=== PATIENT | female | born 1940 | race African-American/Black ===

== ENCOUNTER 2022-08-31 01:56 | Emergency (ER) | payer OTHER ==
[2022-08-31 02:10] VITALS: BMI 25.0
[2022-08-31] MEDS ORDERED: SODIUM CHLORIDE 0.9% 500 ML INFUS.BAG IV ONE (02:47)
[2022-08-31 03:48] LABS: BASO % 0.8 % (0-2.0); EOS % 1.7 % (0-4.5); HEMATOCRIT 43.3 % (32.4-45.2); HEMOGLOBIN 15.2 GM/dL (10.7-15.3); LYMPH % 28.7 % (8-40); MCH 31.6 pg (25.7-33.7); MCHC 35.2 g/dl (32.0-36.0); MEAN CELL VOLUME 89.8 fl (80-96); MEAN PLT VOLUME 7.8 fl (7.5-11.1); NEUT % 59.8 % (42.8-82.8); PLATELET COUNT 234 10^3/uL (134-434); RBC 4.82 M/mm3 (3.60-5.2); RDW 13.6 % (11.6-15.6); WHITE BLOOD COUNT 5.3 K/mm3 (4.0-10.0)
[2022-08-31 03:53] LABS: INR 1.03 (0.83-1.09); PROTHROMBIN TIME (PATIENT) 11.9 SEC (9.7-13.0)
[2022-08-31 03:56] LABS: ACTIVATED PTT 29.4 SECONDS (25.2-36.5)
[2022-08-31 04:08] LABS: CALCIUM 9.7 mg/dL (8.5-10.1)
[2022-08-31 04:09] LABS: ALBUMIN 3.9 g/dl (3.4-5.0); BLOOD UREA NITROGEN 8.4 mg/dL (7-18)
[2022-08-31 04:13] LABS: BILIRUBIN,TOTAL 0.8 mg/dL (0.2-1)
[2022-08-31 05:06] LABS: EPI CELLS 4 /uL (0-25.1); HYALINE CASTS 0 /uL (0-3.1); PH,URINE 6.5 (5.0-8.0); URINE APPEARANCE CLEAR; URINE BACTERIA 111 /uL (0-1359); URINE BILIRUBIN NEGATIVE (NEGATIVE); URINE COLOR YELLOW; URINE GLUCOSE (UA) NEGATIVE (NEGATIVE); URINE KETONE NEGATIVE (NEGATIVE); URINE LEUK ESTERASE NEGATIVE (NEGATIVE); URINE NITRITE NEGATIVE (NEGATIVE); URINE PROTEIN NEGATIVE (NEGATIVE); URINE RBC 8 /uL (0-23.9); URINE UROBILINOGEN 0.2 mg/dL (0.2-1.0); URINE WBC 5 /uL (0-25.8)
[2022-08-31 05:30] VITALS: BP 130/60; PULSE 79; RESP 15; TEMP 98
== END 2022-08-31 05:46 | disposition home or self-care (01) ==
LOC: JER 01:56
DX: N93.9 Abnormal uterine and vaginal bleeding, unspecified (principal)
CPT/HCPCS: 36415; 80053; 81003; 82550; 84484; 85025; 85610; 85730; 86850; 86900; 86901; 87086; 93005; 93010; 99284-25

== ENCOUNTER 2025-01-15 09:38 | Emergency (ER) | payer OTHER ==
[2025-01-15 09:45] VITALS: RESP 16; TEMP 97.3; BMI 27.1
[2025-01-15] MEDS ORDERED: FAMOTIDINE 20 MG/50 ML IVPB 20 MG/50 ML MG IVPB ONE (10:11)
[2025-01-15] MEDS ORDERED: MAG HYDROX/AL HYDROX/SIMETH 30 ML UNIT-DOSE CUP ONE (10:11)
[2025-01-15] MEDS: SODIUM CHLORIDE 0.9% 500 ML INFUS.BAG IV ONE (10:40)
[2025-01-15] MEDS: MAG HYDROX/AL HYDROX/SIMETH 30 ML UNIT-DOSE CUP PO ONE (10:40)
[2025-01-15] MEDS: FAMOTIDINE 20 MG/50 ML IVPB 20 MG/50 ML MG IVPB ONE (10:40)
[2025-01-15 10:49] LABS: HEMATOCRIT 40.4 % (32.4-45.2); HEMOGLOBIN 13.7 G/dL (10.7-15.3); INR 1.04 (0.83-1.09); MCH 30.1 pg (25.7-33.7); MCHC 33.9 g/dl (32.0-36.0); MEAN CELL VOLUME 88.7 fl (80-96); MEAN PLT VOLUME 7.4 fl (7.5-11.1); PLATELET COUNT 285.5 10^3/uL (134-434); PROTHROMBIN TIME (PATIENT) 11.8 SEC (9.7-13.0); RBC 4.55 10^6/uL (3.60-5.2); RDW 14.1 % (11.6-15.6); WHITE BLOOD COUNT 5.6 10^3/uL (4.0-10.8)
[2025-01-15 10:51] LABS: ACTIVATED PTT 29.3 SECONDS (25.2-36.5)
[2025-01-15 10:57] LABS: PLATELET ESTIMATE ADEQUATE
[2025-01-15 10:59] LABS: ALBUMIN 3.8 g/dl (3.4-5.0); BILIRUBIN,TOTAL 0.5 mg/dl (0.2-1); CALCIUM 9.6 mg/dl (8.5-10.1); CREATININE 0.9 mg/dl (0.6-1.3); MAGNESIUM 2.1 mg/dL (1.8-2.4); PHOSPHOROUS 2.6 (2.5-4.9); POTASSIUM 4.2 mmol/L (3.5-5.1)
[2025-01-15 12:01] VITALS: BP 133/76; PULSE 98
== END 2025-01-15 12:17 | disposition home or self-care (01) ==
LOC: FER 09:38
PROC: 3E033GC Introduction of Other Therapeutic Substance into Peripheral Vein, Percutaneous Approach (ICD-10-PCS; principal; 2025-01-15)
DX: K40.90 Unilateral inguinal hernia, without obstruction or gangrene, not specified as recurrent (principal); R11.0 Nausea; R53.1 Weakness; R10.13 Epigastric pain
CPT/HCPCS: 36415; 71046-TC-FY; 80053; 81003; 83690; 83735; 84100; 84439; 84443; 84484; 85025; 85610; 85730; 86850; 86900; 86901; 87086; 93005; 96365; 99285-25